=== PATIENT | female | born 1995 | race Caucasian/White ===

== ENCOUNTER 2021-02-19 22:21 | Emergency (ER) | payer OTHER ==
--- NOTE | 2021-02-19 23:41 | ERPHSYRPT ---
- History of Present Illness Time Seen by Provider: 02/19/21 23:41 Source: patient Exam Limitations: no limitations Patient Subjective Stated Complaint: pt states she was carrying too much and missed a step and rolled down the steps. states she is unsure of how many steps but there were "a lot". pt c/o pain in lt shoulder, slt ribs, lt head, lt foot and 2nd toe. Triage Nursing Assessment: pt alert and oriented, answers questions approp. pt ambulatory with slow steady gait noted. respirations nonlabored with lungs cta. bruising noted to lt head behind ear and to lt ear, bilat wrists, lt 2nd toe, no bruising noted to lt ribs. tenderness ntoed to lt ribs. Occurred: yesterday Reason for Fall: lost balance Injuries/Pain Location: head, upper extremity, chest, lower extremity Loss of Consciousness: no loss of consciousness Quality: aching Severity of Pain-Max: moderate Severity of Pain-Current: moderate Modifying Factors: Improves With: movement Associated Symptoms (Fall): denies symptoms Allergies/Adverse Reactions: No Known Drug Allergies Allergy (Verified 02/19/21 23:40) Hx Tetanus, Diphtheria Vaccination/Date Given: Yes Hx Influenza Vaccination/Date Given: No Hx Pneumococcal Vaccination/Date Given: No Immunizations Up to Date: Yes Travel Risk - International Travel Have you traveled outside of the country in past 3 weeks: No - Coronavirus Screening Are you exhibiting any of the following symptoms?: No Close contact with a COVID-19 positive Pt in past 14-21 Days: No - Vaccine Status Have you recieved a Covid-19 vaccination: No - Review of Systems Constitutional: No Symptoms Eyes: No Symptoms Ears, Nose, & Throat: No Symptoms Respiratory: No Symptoms Cardiac: No Symptoms Abdominal/Gastrointestinal: No Symptoms Genitourinary Symptoms: No Symptoms Musculoskeletal: No Symptoms Skin: No Symptoms Neurological: No Symptoms Psychological: No Symptoms Endocrine: No Symptoms Hematologic/Lymphatic: No Symptoms Immunological/Allergic: No Symptoms All Other Systems: Reviewed and Negative - Past Medical History Pertinent Past Medical History: No - Past Surgical History Past Surgical History: Yes Female Surgical History: Dilation & Curettage Other Surgical History: oral surgery - Social History Smoking Status: Current every day smoker How long have you smoked: 10yrs Exposure to second hand smoke: No Drug Use: none Patient Lives Alone: No - Female History Hx Last Menstrual Period: currently Hx Now: No - Nursing Vital Signs Nursing Vital Signs: Initial Vital Signs Temperature 98.6 F 02/19/21 23:13 Pulse Rate 115 H 02/19/21 23:13 Respiratory Rate 18 02/19/21 23:13 Blood Pressure 110/70 02/19/21 23:13 O2 Sat by Pulse Oximetry 99 02/19/21 23:13 Pain Scale Pain Intensity 8 - Fermin Coma Score Best Eye Response (Fermin): (4) open spontaneously Best Verbal Response (Fermin): (5) oriented Best Motor Response (Fermin): (6) obeys commands Fermin Total: 15 - Physical Exam General Appearance: mild distress Head Injury: contusions, tenderness Eye Exam: PERRL/EOMI ENT Exam: airway nml, evidence of ENT injury Neck Exam: supple, trachea midline, full range of motion, normal alignment, normal inspection Respiratory/Chest Exam: chest tenderness (left chest wall) Cardiovascular Exam: normal heart sounds, regular rate/rhythm Gastrointestinal Exam: soft, normal bowel sounds Rectal Exam: deferred Back Exam: normal inspection, normal range of motion Extremity Exam: pelvis stable, contusions, evidence of injury (left shoulder and foot), pain with movement SpO2: 99 - Course Nursing assessment & vital signs reviewed: Yes - Radiology Exams Left Foot X-ray Interpretation: Interpreted by me, Negative - CT Exams head CT Interpretation: Negative Ordered Tests: Active Orders 24 hr Category Date Time Status FOOT (MINIMUM 3 VIEWS) Stat Exams 02/20/21 00:09 Taken HEAD WITHOUT CONTRAST [CT] Stat Exams 02/19/21 23:57 Taken RIBS UNILATERAL Stat Exams 02/20/21 00:00 Taken SHOULDER Stat Exams 02/20/21 00:10 Taken Medication Summary Discontinued Medications Generic Name Dose Route Start Last Admin Trade Name Naima PRN Reason Stop Dose Admin Hydrocodone Bitart/Acetaminophen 1 tab 02/20/21 01:43 02/20/21 02:39 Hydrocodone/Apap 5/325 Mg Tablet PO 02/20/21 01:44 1 tab STAT ONE Administration Hydrocodone Bitart/Acetaminophen Confirm 02/20/21 02:36 Hydrocodone/Apap 5/325 Mg Tablet Administered 02/20/21 02:37 Dose 1 tab .ROUTE .STK-MED ONE - Progress Progress: unchanged Progress Note: 02/20/21 04:35 Multiple contusions, no fx seen, stable, since motrin not helping, Rx a few norco. Will see patient in: hospital (full admit) Counseled pt/family regarding: diagnosis, need for follow-up, rad results - Departure Departure Disposition: Home Clinical Impression: Multiple contusions Condition: Stable Critical Care Time: No Referrals: DOCTOR,NO FAMILY [Primary Care Provider] - Follow up/PCP as directed Instructions: Contusion (DC), Preventing Falls Additional Instructions: Home for rest. Ibuprofen for pain. Hydrocodone only for significant pain. Recheck if not steadily better. Prescriptions: Hydrocodone/Acetaminophen [Hydrocodone-Acetamin 5-325 mg] 1 tab PO Q6HPRN PRN #10 tablet MDD 4 PRN Reason: Pain
[2021-02-20] MEDS ORDERED: NORCO 5/325 MG PO ONE (01:43)
[2021-02-20] MEDS ORDERED: NORCO 5/325 MG ONE (02:36)
[2021-02-20 02:47] VITALS: BP 112/72; PULSE 111
[2021-02-20 04:33] VITALS: O2SAT 99
--- NOTE | 2021-02-20 07:59 | XRAY ---
Indication: Pain following fall down stairs. Comparison: None 3 view left shoulder obtained. No bony, articular, or soft tissue abnormalities.
--- NOTE | 2021-02-20 08:01 | XRAY ---
Indication: Pain following fall down stairs. Comparison: None 3 nonweightbearing views left foot demonstrates small calcaneal cuboid accessory ossicle. No other bony, articular, or soft tissue abnormalities.
--- NOTE | 2021-02-20 08:01 | XRAY ---
Indication: Pain following fall down stairs. Comparison: None 2 view left ribs obtained. No bony, articular, or soft tissue abnormalities.
--- NOTE | 2021-02-20 08:12 | XRAY ---
Indication: Pain following fall down stairs. Multiple contiguous axial images obtained through the head without contrast. Comparison: None Normal appearing brain parenchyma, ventricles, and bony calvarium. Visualized paranasal sinuses and mastoid air cells are clear. Impression: Normal CT head without contrast exam. Comment: Preliminary interpretation may by [facility]. No critical discrepancy.
== END 2021-02-20 02:47 | disposition home or self-care (01) ==
LOC: ED 22:21
DX: S90.32XA Contusion of left foot, initial encounter (principal); S40.012A Contusion of left shoulder, initial encounter; W10.9XXA Fall (on) (from) unspecified stairs and steps, initial encounter; R51.9 Headache, unspecified; Z72.0 Tobacco use; Z79.891 Long term (current) use of opiate analgesic
CPT/HCPCS: 70450; 71100; 73030; 73630; 99283; A9270-GY